=== PATIENT | male | born 1990 | race Two or more races ===

== ENCOUNTER 2025-02-18 11:14 | Inpatient (IN) | payer MEDICAID, OTHER ==
[~2025-02-18] VITALS: Ht 182.9 cm; Wt 105.3 kg
[2025-02-18] MEDS: SODIUM CHLORIDE 0.9% 1,000 ML IV ONE (11:28)
[2025-02-18] MEDS: NALOXONE HCL 1MG/ML 2ML SYRINGE IV ONE (11:28)
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
[2025-02-18 11:38] VITALS: PULSE 96; RESP 41; O2SAT 96
[2025-02-18 12:09] LABS: Amphetamine Screen, Urine Neg (NEGATIVE); Barbiturate Scree,Urine Neg (NEGATIVE); Benzodiazephine Screen, Urine Neg (NEGATIVE); Cannabinoid Screen, Urine Pos (NEGATIVE); Cocaine Screen, Urine Neg (NEGATIVE); Opiate Scree,Urine Neg (NEGATIVE); Phencyclidine Screen, Urine Neg (NEGATIVE)
[2025-02-18] MEDS ORDERED: SODIUM CHLORIDE 0.9% 1,000 ML IV ONE (17:00)
[2025-02-18] MEDS: THIAMINE 100mg/ml INJ (200mg/2ml VIAL) IV ONE (17:06)
[2025-02-18] MEDS: SODIUM CHLORIDE 0.9% 1,000 ML IVB ONE (17:06)
[2025-02-18 17:09] LABS: Basophils # (auto) 0.1 10 ^3/uL (0-0.2); Eosinophils # (auto) 0.1 10 ^3/uL (0-0.8); Eosinophils % (auto) 0.7 % (0.0-7.0); Hematocrit 48.5 % (41.0-53.0); Hemoglobin 15.9 g/dL (13.5-17.5); Lymphocytes # (auto) 2.6 10 ^3/uL (0.4-5.4); Lymphocytes % (auto) 27.6 % (10.0-50.0); Mean Corpuscular Hemoglobin 32.3 pg (28.0-32.0); Mean Corpuscular Hgb Conc. 32.7 g/dL (32.0-36.0); Mean Corpuscular Volume 98.7 fL (80.0-100.0); Monocytes # (auto) 0.6 10 ^3/uL (0-1.3); Monocytes % (auto) 5.9 % (0.0-12.0); Neutrophils # (auto) 6.1 10 ^3/uL (1.6-8.6); Neutrophils % (auto) 64.8 % (37.0-80.0); Nucleated Red Blood Cells % 0.1 %; Platelet Count (auto) 293 10^3/uL (140-450); Red Blood Cells 4.91 10^6/uL (4.5-5.90); White Blood Cell 9.5 10^3/uL (4.4-10.8)
[2025-02-18 17:15] LABS: Potassium 4.2 mmol/L (3.5-5.1)
[2025-02-18 17:16] LABS: Anion Gap 11 (5-15); Carbon Dioxide 23 mmol/L (20-31)
[2025-02-18 17:21] LABS: BUN/Creatinine Ratio 6.3 (10.0-20.0)
[2025-02-18] MEDS ORDERED: ONDANSETRON HCL 4 MG/2 ML VIAL IV PRN (17:30)
--- NOTE | 2025-02-18 17:36 | DVH ---
EXAM: CT Head Without Intravenous Contrast CLINICAL INDICATION: altered TECHNIQUE: Axial computed tomography images of the head/brain without intravenous contrast. This CT exam was performed using one or more of the following dose reduction techniques: automated exposure control, adjustment of the mA and/or kV according to patient size, and/or use of iterative reconstru ction technique. CONTRAST: RADIATION DOSE: CTDIvol = 60.48 mGy, DLP = 1070.84 mGy-cm COMPARISON: None FINDINGS: BRAIN AND EXTRA-AXIAL SPACES: No acute intracranial hemorrhage, midline shift or mass effect. If sy mptoms persist, further evaluation with MRI is recommended. No significant white matter disease. BONES/JOINTS: Unremarkable. No acute fracture. SOFT TISSUES: Unremarkable. SINUSES: Mucosal thickening of the right maxillary sinus. MASTOID AIR CELLS: Unremarkable as visualized. No mastoid effusion. OTHER FINDINGS: . . . IMPRESSION: 1. No acute intracranial hemorrhage, midline shift or mass effect. If symptoms persist, further eval uation with MRI is recommended. 2. Mucosal thickening of the right maxillary sinus.
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
[2025-02-18 17:49] LABS: Blood Urea Nitrogen 7 mg/dL (9-23); Calcium 8.2 mg/dL (8.7-10.4); Chloride 115 mmol/L (98-107); Glucose 107 mg/dL (74-106); Sodium 149 mmol/L (136-145)
[2025-02-18] MEDS: SODIUM CHLORIDE 0.9% 1,000 ML IV SCH (18:04)
[2025-02-18] MEDS: cefTRIAXone 1GM/50ML D5W 50 ML IV SCH (18:07)
[2025-02-18] MEDS: LOSARTAN POTASSIUM 25 MG TAB PO SCH (18:08)
--- NOTE | 2025-02-18 18:21 | DVH ---
EXAM: XY CHEST XRAY 1 VIEW TECHNIQUE: Single frontal chest radiograph CLINICAL HISTORY: aloc COMPARISON: None Findings/Impression: Frontal chest radiograph demonstrates no acute osseous or superficial soft tissue abnormalities. The trachea is midline. Cardiomegaly. No pneumothorax, pleural effusions, or consolidations.
[2025-02-18 18:32] LABS: Blood Alcohol 341.5 mg/dL (<10)
[2025-02-18 19:04] LABS: Urine Bacteria None Seen /hpf (None Seen)
[2025-02-18 19:37] LABS: Urine Blood Negative /uL (Negative); Urine Clarity Clear (Clear); Urine Color Colorless (Yellow); Urine Protein, UAD Negative (Negative); Urine Specific Gravity 1.004 (1.001-1.035); Urine Squamous Epithelial Cell None Seen /hpf (<5); Urine Urobilinogen Normal (Negative); Urine pH 5.5 (5.0-9.0)
[2025-02-18] MEDS: ACETAMINOPHEN 325 MG TAB PO PRN (20:01)
[2025-02-18 21:00] VITALS: PULSE 69; RESP 18; O2SAT 96
[2025-02-18 22:00] VITALS: BP 162/95; PULSE 69; PULSE 84; RESP 18; TEMP 98.1; O2SAT 96
[2025-02-18 22:39] VITALS: BP 162/95; PULSE 69; RESP 18; TEMP 98.1; O2SAT 96
[2025-02-19] VITALS (8 sets, daily range): BP systolic 105–181; BP diastolic 75–128; PULSE 63–108; RESP 16–20; TEMP 97.6–98.4; O2SAT 95–99
[2025-02-19] MEDS: hydrALAZINE HCL 20 MG/ML VL IV PRN (04:41)
[2025-02-19 07:57] LABS: Basophils # (auto) 0.1 10 ^3/uL (0-0.2); Basophils % (auto) 0.5 % (0.0-2.0); Eosinophils # (auto) 0.1 10 ^3/uL (0-0.8); Eosinophils % (auto) 0.6 % (0.0-7.0); Hematocrit 46.3 % (41.0-53.0); Hemoglobin 15.8 g/dL (13.5-17.5); Lymphocytes # (auto) 1.5 10 ^3/uL (0.4-5.4); Lymphocytes % (auto) 15.1 % (10.0-50.0); Mean Corpuscular Hgb Conc. 34.2 g/dL (32.0-36.0); Mean Corpuscular Volume 96.4 fL (80.0-100.0); Monocytes # (auto) 0.7 10 ^3/uL (0-1.3); Monocytes % (auto) 7.2 % (0.0-12.0); Neutrophils # (auto) 7.3 10 ^3/uL (1.6-8.6); Neutrophils % (auto) 76.6 % (37.0-80.0); Nucleated Red Blood Cells % 0.1 %; Platelet Count (auto) 308 10^3/uL (140-450); Red Cell Distribution Width 13.7 % (11.8-14.3); White Blood Cell 9.6 10^3/uL (4.4-10.8)
[2025-02-19 08:19] LABS: Alkaline Phosphatase 101 U/L (46-116); Anion Gap 12 (5-15); BUN/Creatinine Ratio 7.5 (10.0-20.0); Calcium 9.3 mg/dL (8.7-10.4); Carbon Dioxide 21 mmol/L (20-31); Glucose 106 mg/dL (74-106); Sodium 143 mmol/L (136-145); Total Protein 6.3 g/dL (5.7-8.2)
[2025-02-19 08:20] LABS: Albumin 4.2 g/dL (3.2-4.8)
[2025-02-19 08:21] LABS: Alanine Aminotransferase 42 U/L (7-40); Aspartate Aminotransferase 63 U/L (13-40); Bilirubin, Total 0.7 mg/dL (0.2-1.0); Blood Urea Nitrogen 7 mg/dL (9-23); Chloride 110 mmol/L (98-107); Potassium 3.4 mmol/L (3.5-5.1)
[2025-02-19] MEDS: FOLIC ACID 1 MG TAB PO SCH (08:57)
[2025-02-19] MEDS: THIAMINE HCL 100 MG TAB PO SCH (08:57)
[2025-02-19] MEDS: MULTIPLE VITAMIN TAB PO SCH (08:57)
[2025-02-19] MEDS: PANTOPRAZOLE 40 MG/10 ML VIAL INJ IV SCH (08:57)
[2025-02-19] MEDS: ENOXAPARIN SOD 40 MG/0.4 ML SYRINGE SC SCH (08:58)
[2025-02-19] MEDS: LORazepam 2MG/ML-1ML VIAL IV PRN (10:57)
[2025-02-19] MEDS: HYDROcodone-ACET 5/325MG TAB PO PRN (10:57)
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
--- NOTE | 2025-02-19 14:47 | MEDREC ---
[facility] ASP Intervention Section I [facility] ASP Intervention: Review courses of therapy (PLEASE CONSIDER DISCONTINUING ANTIBIOTIC (CEFTRIAXONE) DUE TO THE LACK OF EVIDENCES FOR INFECTION) PATRICIA [facility] Feb 19, 2025 14:47
[2025-02-20] VITALS (7 sets, daily range): BP systolic 147–187; BP diastolic 98–115; PULSE 64–97; RESP 16–22; TEMP 97.3–98.3; O2SAT 95–97
--- NOTE | 2025-02-20 11:50 | DVHPN2 ---
Objective Vitals Vital Signs Date Time Temp Pulse Resp B/P (MAP) Pulse Ox O2 Delivery O2 Flow Rate FiO2 02/20/25 09:00 187/113 02/20/25 09:00 97.9 78 18 95 97.9 02/20/25 08:00 Room Air* 0 21 Intake/Output Intake and Output 02/20/25 07:00 Intake Total 1890 ml Balance 1890 ml Intake Oral 1440 ml IV Total 450 ml # Voids 3 Medications Current Medications Medications Dose Ordered Sig/Chiqui Route Start Time Stop Time Status Last Admin Dose Admin Thiamine HCl 100 mg DAILY PO 02/19/25 10:00 02/20/25 08:59 100 MG Folic Acid 1 mg DAILY PO 02/19/25 10:00 02/20/25 08:58 1 MG Multivitamins 1 tab DAILY PO 02/19/25 10:00 02/20/25 08:59 1 TAB Ondansetron HCl 4 mg Q4HP PRN IV 02/18/25 17:30 Enoxaparin Sodium 40 mg DAILY SC 02/19/25 10:00 02/20/25 08:59 40 MG Acetaminophen 650 mg Q6HP PRN PO 02/18/25 17:30 02/19/25 08:59 650 MG Losartan Potassium 12.5 mg DAILY PO 02/18/25 17:45 02/20/25 08:58 12.5 MG Hydralazine HCl 10 mg Q6HP PRN IV 02/18/25 17:45 02/20/25 09:00 10 MG Sodium Chloride 1,000 ml @ 100 mls/hr Q10H IV 02/18/25 17:45 02/20/25 08:58 100 MLS/HR Pantoprazole Sodium 40 mg DAILY IV 02/19/25 10:00 02/20/25 08:58 40 MG Ceftriaxone Sodium 50 ml @ 100 mls/hr DAILY@09 IV 02/18/25 17:45 02/20/25 08:57 100 MLS/HR Lorazepam 1 mg Q4HR PRN IV 02/19/25 10:00 02/20/25 09:00 1 MG Acetaminophen/ Hydrocodone Bitart 1 tab Q4HPRN PRN PO 02/19/25 10:00 02/20/25 09:00 1 TAB Laboratory Results Laboratory Tests 02/19/25 06:28 Urinalysis Test 02/18/25 17:27 Urine Color Colorless (Yellow) Urine Clarity Clear (Clear) Urine pH 5.5 (5.0-9.0) Urine Specific [place] 1.004 (1.001-1.035) Urine Protein Negative (Negative) Urine Ketones Negative (Negative) Urine Blood Negative /uL (Negative) Urine Nitrite Negative (Negative) Urine Bilirubin Negative (Negative) Urine Urobilinogen Normal mg/dL (Negative) Urine Leukocyte Esterase Negative /uL (Negative) Urine RBC <1 /hpf (0 - 3) Urine Microscopic WBC /HPF (0-3) Urine Squamous Epithelial Cells None seen /hpf (<5) Urine Bacteria None seen /hpf (None Seen) Urine Glucose Normal mg/dL (Normal) NAHUN YOUNGBLOOD MD Feb 20, 2025 11:50
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
[2025-02-20] MEDS: MELATONIN 5 MG TAB PO ONE (22:09)
[2025-02-21] VITALS (9 sets, daily range): BP systolic 142–159; BP diastolic 85–100; PULSE 64–85; RESP 16–18; TEMP 97.6–98.1; O2SAT 94–100
[2025-02-21] MEDS: MORPHINE SULFATE 4 MG/ML SYR/VIAL IV ONE (16:06)
[2025-02-21 17:42] LABS: Albumin 4.2 g/dL (3.2-4.8); Alkaline Phosphatase 93 U/L (46-116); Anion Gap 10 (5-15); BUN/Creatinine Ratio 11.4 (10.0-20.0); Blood Urea Nitrogen 12 mg/dL (9-23); Calcium 9.3 mg/dL (8.7-10.4); Carbon Dioxide 25 mmol/L (20-31); Potassium 3.5 mmol/L (3.5-5.1); Sodium 142 mmol/L (136-145); Total Protein 6.4 g/dL (5.7-8.2)
[2025-02-21 17:43] LABS: Bilirubin, Total 0.6 mg/dL (0.2-1.0)
[2025-02-21 17:44] LABS: Alanine Aminotransferase 42 U/L (7-40); Aspartate Aminotransferase 52 U/L (13-40); Chloride 107 mmol/L (98-107); Glucose 121 mg/dL (74-106)
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
[2025-02-21] MEDS ORDERED: IBUPROFEN 400 MG TAB PO PRN (21:45)
[2025-02-22 01:00] VITALS: BP 151/99; PULSE 67; RESP 19; TEMP 97; O2SAT 97
[2025-02-22] MEDS: LIDOCAINE 5% TOPICAL PATCH TOP SCH (01:15)
[2025-02-22 05:00] VITALS: BP 154/100; PULSE 65; RESP 18; TEMP 98; O2SAT 97
[2025-02-22] MEDS: GABAPENTIN 100 MG CAP PO SCH (06:25)
[2025-02-22 08:00] VITALS: PULSE 70; RESP 16
[2025-02-22 09:00] VITALS: BP 158/93; PULSE 70; RESP 18; TEMP 98.1; O2SAT 98
[2025-02-22 13:00] VITALS: BP 147/92; PULSE 75; RESP 18; O2SAT 96
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
== END 2025-02-22 17:15 | disposition home or self-care (01) | DRG 812 ==
LOC: ER 11:14 → EDBD 11:14 → OVERFLOW 17:27 → EDBD 17:27 → TELE-WESTW 21:39
PROVIDERS: ADMIT Internal Medicine; ATTEND Internal Medicine
DX: T40.711A Poisoning by cannabis, accidental (unintentional), initial encounter (principal); G92.8 Other toxic encephalopathy; G31.2 Degeneration of nervous system due to alcohol; I10 Essential (primary) hypertension; F10.129 Alcohol abuse with intoxication, unspecified; F10.139 Alcohol abuse with withdrawal, unspecified; F12.10 Cannabis abuse, uncomplicated; Z79.899 Other long term (current) drug therapy; Y90.8 Blood alcohol level of 240 mg/100 ml or more
CPT/HCPCS: 36415; 70450; 71045; 80048; 80053; 80307; 80320; 81001; 82962; 83735; 85025; 96361; 96374; 99291; G0378; J2470